=== PATIENT | female | born 1990 | race African-American/Black ===

== ENCOUNTER 2024-08-14 13:00 | Emergency (ER) | payer SELFPAY ==
[~2024-08-14] VITALS: Ht 170.2 cm; Wt 65.0 kg
[2024-08-14 13:02] VITALS: BP 106/78; PULSE 76; RESP 16; TEMP 36.7; O2SAT 98
== END 2024-08-14 17:02 | disposition left against medical advice (07) ==
LOC: ER 13:00
DX: M54.2 Cervicalgia (principal); Z53.21 Procedure and treatment not carried out due to patient leaving prior to being seen by health care provider